=== PATIENT | female | born 1965 | race Caucasian/White ===

== ENCOUNTER 2018-11-19 10:37 | Outpatient (CLI) | payer OTHER | END 2018-11-19 10:52 | disposition home or self-care (01) | LOC: MAMO-SONO 10:37 | DX: Z12.31 Encounter for screening mammogram for malignant neoplasm of breast (principal) ==

== ENCOUNTER 2019-05-03 09:51 | Outpatient (CLI) | payer OTHER | END 2019-05-03 10:00 | disposition home or self-care (01) | LOC: SONOGRAMA 09:51 | DX: E04.1 Nontoxic single thyroid nodule (principal) ==

== ENCOUNTER 2020-05-08 12:45 | Outpatient (CLI) | payer OTHER | END 2020-05-08 12:58 | disposition home or self-care (01) | LOC: MAMO-SONO 12:45 | DX: Z12.31 Encounter for screening mammogram for malignant neoplasm of breast (principal) ==

== ENCOUNTER 2020-05-08 14:33 | Outpatient (CLI) | payer OTHER | END 2020-05-08 14:36 | disposition home or self-care (01) | LOC: NUCLEAR 14:33 | DX: M89.8X0 Other specified disorders of bone, multiple sites (principal) ==

== ENCOUNTER 2021-06-14 11:24 | Outpatient (CLI) | payer OTHER | END 2021-06-14 11:29 | disposition home or self-care (01) | LOC: SONOGRAMA 11:24 | PROVIDERS: ATTEND Internal Medicine Endocrinology, Diabetes & Metabolism | DX: E04.2 Nontoxic multinodular goiter (principal); E03.8 Other specified hypothyroidism ==